=== PATIENT | female | born 1935 | race African-American/Black ===

== ENCOUNTER 2018-11-25 17:47 | Emergency (ER) | payer OTHER ==
[~2018-11-25] VITALS: Ht 170.2 cm; Wt 108.9 kg
[2018-11-25 19:19] LABS: Basophils # (auto) 0 uL; Basophils % (auto) 0.4 % (0.0-2.0); Eosinophils # (auto) 0.1 uL; Eosinophils % (auto) 1.1 % (0.0-7.0); Hematocrit 32.9 % (36.0-46.0); Hemoglobin 10.9 g/dL (12.2-16.2); Lymphocytes # (auto) 1.3 uL; Lymphocytes % (auto) 19.1 % (10.0-50.0); Mean Corpuscular Hemoglobin 29.6 pg (28.0-32.0); Mean Corpuscular Hgb Conc. 33.2 g/dL (32.0-36.0); Mean Corpuscular Volume 89.4 fL (80.0-100.0); Monocytes # (auto) 0.4 uL; Monocytes % (auto) 6.4 % (0.0-12.0); Neutrophils # (auto) 5.1 uL; Nucleated Red Blood Cells % 0.1 %; Platelet Count (auto) 260 10^3/uL (140-450); Red Blood Cells 3.68 10^6/uL (4.0-5.20); Red Cell Distribution Width 15.5 % (11.8-14.3); White Blood Cell 6.9 10^3/uL (4.4-10.8)
[2018-11-25] MEDS ORDERED: ONDANSETRON HCL 4 MG/2 ML VIAL IV ONE ×2 (19:30→21:00)
[2018-11-25] MEDS ORDERED: MORPHINE SULFATE 4 MG/ML SYR/VIAL IV ONE ×2 (19:30→21:00)
[2018-11-25 19:38] LABS: Albumin 3.4 g/dL (3.4-5.0); Calcium 8.4 mg/dL (8.5-10.1); Magnesium 1.9 mg/dL (1.6-2.6)
[2018-11-25 19:43] LABS: Bilirubin, Total 0.5 mg/dL (0.2-1.0); Total Protein 7.2 g/dL (6.4-8.2)
[2018-11-25] MEDS ORDERED: HYDROmorphone HCL 2 MG/ML VL IV ONE (21:45)
[2018-11-25 21:51] LABS: Urine Bacteria NONE SEEN /hpf (None Seen); Urine Blood Negative /uL (Negative); Urine Specific Gravity 1.012 (1.001-1.035); Urine WBC 1 /hpf (0 - 5)
[2018-11-25] MEDS ORDERED: cloNIDine HCL 0.1 MG TAB ONE (22:53)
[2018-11-25] MEDS ORDERED: cloNIDine HCL 0.1 MG TAB PO ONE (23:15)
[2018-11-25] MEDS ORDERED: LABETALOL HCL 5 MG/ML 4ML SYRINGE IV ONE (23:54)
[2018-11-26] MEDS ORDERED: LABETALOL HCL 5 MG/ML ML 20ML VIAL IV ONE
[2018-11-26 01:25] VITALS: BP 209/96
[2018-11-26] MEDS ORDERED: HYDROmorphone HCL 2 MG/ML VL IV ONE (01:30)
[2018-11-26] MEDS ORDERED: ONDANSETRON HCL 4 MG/2 ML VIAL IV ONE (01:30)
== END 2018-11-26 01:50 | disposition short-term general hospital (02) ==
LOC: EDBD 17:47 → ER 17:50
DX: S72.012A Unspecified intracapsular fracture of left femur, initial encounter for closed fracture (principal); E11.9 Type 2 diabetes mellitus without complications; N28.9 Disorder of kidney and ureter, unspecified; R79.89 Other specified abnormal findings of blood chemistry; W18.39XA Other fall on same level, initial encounter; Y93.89 Activity, other specified; Y92.098 Other place in other non-institutional residence as the place of occurrence of the external cause; Y99.8 Other external cause status
CPT/HCPCS: 36415; 51702; 70450; 71045; 72125; 73700; 80053; 81001; 83735; 84484; 85025; 93005; 96374; 96375; 96376; 99285; J1170; J2270; J2405; J3490

== ENCOUNTER 2024-06-14 23:32 | Emergency (ER) | payer OTHER ==
[~2024-06-14] VITALS: Ht 167.6 cm; Wt 118.2 kg
[2024-06-14] MEDS: NITROGLYCERIN 2% OINT 1GM PKG TD ONE (23:47)
[2024-06-14] MEDS: FUROSEMIDE 100 MG/10ML VIAL IV ONE (23:47)
[2024-06-15] VITALS: PULSE 66; RESP 18; O2SAT 96
[2024-06-15 00:23] LABS: Basophils # (auto) 0.1 10 ^3/uL (0-0.2); Basophils % (auto) 0.3 % (0.0-2.0); Eosinophils # (auto) 0 10 ^3/uL (0-0.8); Eosinophils % (auto) 0.2 % (0.0-7.0); Hematocrit 32.6 % (36.0-46.0); Hemoglobin 9.2 g/dL (12.2-16.2); Lymphocytes # (auto) 2.2 10 ^3/uL (0.4-5.4); Lymphocytes % (auto) 12.5 % (10.0-50.0); Mean Corpuscular Hgb Conc. 28.3 g/dL (32.0-36.0); Monocytes # (auto) 1.6 10 ^3/uL (0-1.3); Monocytes % (auto) 8.9 % (0.0-12.0); Neutrophils % (auto) 78.1 % (37.0-80.0); Nucleated Red Blood Cells % 0.1 %; Platelet Count (auto) 226 10^3/uL (140-450); Red Blood Cells 3.07 10^6/uL (4.0-5.20); Red Cell Distribution Width 18.9 % (11.8-14.3); White Blood Cell 17.9 10^3/uL (4.4-10.8)
[2024-06-15 00:34] LABS: Alanine Aminotransferase 29 U/L (7-40); Albumin 3.3 g/dL (3.2-4.8); Alkaline Phosphatase 69 U/L (46-116); Anion Gap 15 (5-15); Aspartate Aminotransferase 21 U/L (13-40); BUN/Creatinine Ratio 21.9 (10.0-20.0); Blood Urea Nitrogen 77 mg/dL (9-23); Calcium 8.9 mg/dL (8.7-10.4); Carbon Dioxide 12 mmol/L (20-30); Chloride 112 mmol/L (98-107); Glucose 176 mg/dL (74-106); Sodium 139 mmol/L (136-145)
[2024-06-15 00:35] LABS: Bilirubin, Total 0.7 mg/dL (0.2-1.0); Total Protein 5.6 g/dL (5.7-8.2)
[2024-06-15 00:57] LABS: Base Excess -14.1 mmol/L (-2.0-2.0)
[2024-06-15 01:41] LABS: Lactic Acid w/Reflex 2.7 mmol/L (0.4-2.0)
[2024-06-15] MEDS: AZITHROMYCIN 500MG/ 250ML 250 ML IV ONE (01:56)
[2024-06-15 03:15] LABS: Urine Bacteria FEW /hpf (None Seen); Urine Blood Negative /uL (Negative); Urine Budding Yeast MANY /hpf (None Seen); Urine Clarity Turbid (Clear); Urine Color Colorless (Yellow); Urine Protein, UAD 1+ (Negative); Urine Urobilinogen Normal (Negative); Urine WBC 50 /hpf (0 - 5); Urine pH 5.5 (5.0-9.0)
[2024-06-15] MEDS: cefTRIAXone 1GM/50ML D5W 50 ML IV ONE (03:59)
[2024-06-15] MEDS ORDERED: LABETALOL HCL 20 MG/4 ML VL IV ONE (06:15)
[2024-06-15] MEDS: hydrALAZINE HCL 20 MG/ML VL IV ONE (06:36)
[2024-06-15 07:33] VITALS: PULSE 60; RESP 25; O2SAT 98
[2024-06-15] MEDS: FUROSEMIDE 40 MG/4 ML VIAL IV ONE (08:14)
[2024-06-15] MEDS: IPRATROPIUM BROM 0.5 MG/2.5ML INH SOL NEB ONE (08:19)
[2024-06-15] MEDS: ALBUTEROL SULF 2.5 MG/0.5ML(0.5%) NEB SOLN NEB ONE (08:19)
[2024-06-15 10:00] VITALS: BP 169/64; PULSE 60; RESP 26; TEMP 98.4; O2SAT 100
== END 2024-06-15 10:52 | disposition short-term general hospital (02) ==
LOC: ER 23:32
DX: I50.9 Heart failure, unspecified (principal); I21.4 Non-ST elevation (NSTEMI) myocardial infarction; J18.9 Pneumonia, unspecified organism; E11.22 Type 2 diabetes mellitus with diabetic chronic kidney disease; N18.9 Chronic kidney disease, unspecified
CPT/HCPCS: 36415; 36600; 71045; 80053; 81001; 82805; 83605; 83880; 84484; 85025; 85379; 94640; 94660; 96365; 96366; 96368; 96375; 96376; 99291; J0360; J0456; J0696; J1940